=== PATIENT | female | born 1960 | race Caucasian/White ===

== ENCOUNTER 2023-04-23 17:33 | Inpatient (IN) | payer MEDICAID, OTHER ==
[~2023-04-23] VITALS: Ht 167.6 cm; Wt 44.5 kg
[2023-04-23 19:09] LABS: BASOPHILS % (AUTO) 0.6 % (0.0-2.0); EOSINOPHILS % (AUTO) 1.2 % (1.0-6.0); HEMATOCRIT 44.2 % (36-46); HEMOGLOBIN 15.1 g/dL (12.0-16.0); LYMPHOCYTES # (AUTO) 2.6 K/uL (1.0-4.8); LYMPHOCYTES % (AUTO) 31.3 % (22.0-44.0); MEAN CORPUSCULAR HEMOGLOBIN 32.6 pg (26.0-34.0); MEAN CORPUSCULAR HGB CONC 34.2 G/dL (31.0-37.0); MEAN CORPUSCULAR VOLUME 95 fL (80-100); MONOCYTES # (AUTO) 0.8 K/uL (0.1-1.0); MONOCYTES % (AUTO) 9.3 % (2.0-9.0); NEUTROPHILS # (AUTO) 4.7 K/uL (1.8-7.7); NEUTROPHILS % (AUTO) 57.6 % (40.0-70.0); PLATELET COUNT (AUTO) 188 K/uL (150-450); RED BLOOD CELL COUNT(AUTO) 4.64 MIL/uL (4.00-5.20); RED CELL DISTRIBUTION WIDTH 13.4 % (11.5-14.5); WHITE BLOOD COUNT (AUTO) 8.2 K/uL (4.5-11.0)
[2023-04-23 19:17] LABS: ANION GAP 8 mmol/L (8-16); CALCIUM, TOTAL 9.1 mg/dL (8.8-10.5); CARBON DIOXIDE 27 mmol/L (22-29); CHLORIDE 102 mmol/L (98-107); CREATININE 0.68 mg/dL (0.60-1.30); GLOMERULAR FILTR. RATE CALC > 60 mL/min (>60); GLUCOSE,RANDOM 119 mg/dL (70-110); POTASSIUM 3.5 mmol/L (3.5-5.1); SODIUM SERUM 137 mmol/L (136-145); UREA NITROGEN, BLOOD 14 mg/dL (7-18)
[2023-04-23] MEDS ORDERED: OXYC1TAB6 PO (19:20)
[2023-04-23 19:22] LABS: ALANINE AMINOTRANSFERASE 19 U/L (12-78); ALBUMIN 4.1 g/dL (3.4-5.0); ALKALINE PHOSPHATASE 64 U/L (46-116); ASPARTATE AMINOTRANSFERASE 20 U/L (15-37); BILIRUBIN,TOTAL 0.1 mg/dL (0.1-1.0); TOTAL PROTEIN, SERUM 7.5 g/dL (6.4-8.2)
[2023-04-23 19:26] LABS: ALCOHOL, BLOOD (SERUM) 192 mg/dL (0-10)
[2023-04-23 21:32] LABS: COVID AG,FIA SOURCE NASAL SWAB
[2023-04-23 21:39] LABS: PH,URINE DRUG SCREEN 5.5 (5.0-8.0)
[2023-04-23] MEDS ORDERED: HALOPERIDOL 5 MG TABLET PO PRN (21:45)
[2023-04-23 21:48] LABS: ALCOHOL, URINE DRUG SCREEN POSITIVE (NEGATIVE); AMPHET/METH SCREEN,URINE NEGATIVE (NEGATIVE); BARBITURATE SCREEN, URINE NEGATIVE (NEGATIVE); BENZODIAZEPINES SCREEN,URINE NEGATIVE (NEGATIVE); CANNABINOID SCREEN,URINE NEGATIVE (NEGATIVE); COCAINE SCREEN,URINE NEGATIVE (NEGATIVE); METHADONE SCREEN, URINE NEGATIVE (NEGATIVE); OPIATE SCREEN,URINE NEGATIVE (NEGATIVE); PHENCYCLIDINE SCREEN,URINE NEGATIVE (NEGATIVE)
[2023-04-23 21:53] LABS: SARS-COV2 (COVID) ANTIGEN,FIA Negative (Negative)
[2023-04-24] MEDS: ZOLPIDEM TARTRATE 10 MG TABLET PO PRN ×2 (02:49→22:47)
[2023-04-24] MEDS: LORazepam 2 MG TABLET PO PRN ×2 (02:49→08:38)
[2023-04-24 03:13] VITALS: BP 120/70; PULSE 77; RESP 16; TEMP 97.3; O2SAT 96
[2023-04-24] MEDS ORDERED: PNEUMOCOCCAL VACCINE POLYVALENT 0.5 ML SYRINGE [PPSV23] IM. ONE (07:00)
[2023-04-24 08:34] VITALS: BP 108/53; PULSE 104; RESP 18; TEMP 97.5; O2SAT 97
[2023-04-24] MEDS ORDERED: ARIP10TA38 PO (10:45)
[2023-04-24] MEDS: ARIPiprazole 10 MG TABLET PO SCH (11:01)
[2023-04-24 22:12] VITALS: BP 110/63; PULSE 63; RESP 17; TEMP 97.3; O2SAT 98
[2023-04-25 08:21] LABS: CHOL/HDL RATIO 2.7 (3.9-5.7)
[2023-04-25] MEDS: FOLIC ACID 1 MG TABLET PO SCH (08:29)
[2023-04-25] MEDS: ARIPiprazole 10 MG TABLET PO SCH (08:29)
[2023-04-25] MEDS: MULTIVITAMINS WITH MINERALS, THERAPEUTIC TABLET PO SCH (08:29)
[2023-04-25] MEDS: THIAMINE 100 MG TABLET PO SCH (08:29)
[2023-04-25 08:45] VITALS: BP 132/79; PULSE 90; RESP 17; TEMP 97; O2SAT 98
[2023-04-25 23:57] VITALS: BP 120/67; PULSE 68; RESP 17; TEMP 98.1; O2SAT 99
[2023-04-26] MEDS: ZOLPIDEM TARTRATE 10 MG TABLET PO PRN (01:59)
[2023-04-26] MEDS: THIAMINE 100 MG TABLET PO SCH (08:15)
[2023-04-26] MEDS: ARIPiprazole 10 MG TABLET PO SCH (08:15)
[2023-04-26] MEDS: FOLIC ACID 1 MG TABLET PO SCH (08:15)
[2023-04-26] MEDS: MULTIVITAMINS WITH MINERALS, THERAPEUTIC TABLET PO SCH (08:15)
[2023-04-26 08:23] VITALS: BP 142/77; PULSE 81; RESP 16; TEMP 97.9; O2SAT 99
[2023-04-26 22:03] VITALS: BP 131/64; PULSE 82; RESP 16; TEMP 98.1
[2023-04-27] MEDS: ZOLPIDEM TARTRATE 10 MG TABLET PO PRN (01:19)
[2023-04-27 08:11] VITALS: BP 118/69; PULSE 79; RESP 16; TEMP 98.2; O2SAT 97
[2023-04-27] MEDS: THIAMINE 100 MG TABLET PO SCH (08:17)
[2023-04-27] MEDS: MULTIVITAMINS WITH MINERALS, THERAPEUTIC TABLET PO SCH (08:18)
[2023-04-27] MEDS: FOLIC ACID 1 MG TABLET PO SCH (08:18)
[2023-04-27] MEDS: ARIPiprazole 10 MG TABLET PO SCH (08:18)
[2023-04-28 05:06] LABS: HEPATITIS C AB (EIA) Non Reactive (Non Reactive)
== END 2023-04-27 16:30 | disposition left against medical advice (07) | DRG 750 ==
LOC: EMS 17:35 → B3A 04-24 00:03
PROVIDERS: ADMIT Psychiatry & Neurology Psychiatry; ATTEND Psychiatry & Neurology Psychiatry
PROC: GZHZZZZ Group Psychotherapy (ICD-10-PCS; principal; 2023-04-24)
DX: F20.0 Paranoid schizophrenia (principal); E78.5 Hyperlipidemia, unspecified; F10.10 Alcohol abuse, uncomplicated; J45.909 Unspecified asthma, uncomplicated; M10.9 Gout, unspecified; Z20.822 Contact with and (suspected) exposure to COVID-19; R00.0 Tachycardia, unspecified; T43.96XA Underdosing of unspecified psychotropic drug, initial encounter; Y92.89 Other specified places as the place of occurrence of the external cause; Z86.73 Personal history of transient ischemic attack (TIA), and cerebral infarction without residual deficits; Z79.899 Other long term (current) drug therapy; Z88.0 Allergy status to penicillin
CPT/HCPCS: 80053; 80061; 80307; 83036; 85025; 86803; 87340; 99285; G0480

== ENCOUNTER 2023-05-29 10:53 | Inpatient (IN) | payer MEDICAID, OTHER ==
[~2023-05-29] VITALS: Ht 162.6 cm; Wt 42.6 kg
[2023-05-29 11:45] LABS: EOSINOPHILS % (AUTO) 0.6 % (1.0-6.0); HEMATOCRIT 41.6 % (36-46); HEMOGLOBIN 14.2 g/dL (12.0-16.0); LYMPHOCYTES # (AUTO) 2.1 K/uL (1.0-4.8); LYMPHOCYTES % (AUTO) 25.2 % (22.0-44.0); MEAN CORPUSCULAR HEMOGLOBIN 31.5 pg (26.0-34.0); MEAN CORPUSCULAR HGB CONC 34.1 G/dL (31.0-37.0); MEAN CORPUSCULAR VOLUME 93 fL (80-100); MONOCYTES # (AUTO) 0.6 K/uL (0.1-1.0); MONOCYTES % (AUTO) 7.5 % (2.0-9.0); NEUTROPHILS # (AUTO) 5.4 K/uL (1.8-7.7); NEUTROPHILS % (AUTO) 65.7 % (40.0-70.0); RED CELL DISTRIBUTION WIDTH 13.7 % (11.5-14.5); WHITE BLOOD COUNT (AUTO) 8.2 K/uL (4.5-11.0)
[2023-05-29 12:02] LABS: ANION GAP 9 mmol/L (8-16); CALCIUM, TOTAL 8.2 mg/dL (8.8-10.5); CARBON DIOXIDE 24 mmol/L (22-29); CHLORIDE 102 mmol/L (98-107); GLOMERULAR FILTR. RATE CALC > 60 mL/min (>60); GLUCOSE,RANDOM 94 mg/dL (70-110); POTASSIUM 4.4 mmol/L (3.5-5.1); SODIUM SERUM 135 mmol/L (136-145); UREA NITROGEN, BLOOD 12 mg/dL (7-18)
[2023-05-29 12:04] LABS: ALCOHOL, BLOOD (SERUM) 58 mg/dL (0-10)
[2023-05-29 12:07] LABS: ALANINE AMINOTRANSFERASE 26 U/L (12-78); ALBUMIN 3.7 g/dL (3.4-5.0); ALKALINE PHOSPHATASE 62 U/L (46-116); ASPARTATE AMINOTRANSFERASE 31 U/L (15-37); BILIRUBIN,TOTAL 0.2 mg/dL (0.1-1.0); TOTAL PROTEIN, SERUM 6.9 g/dL (6.4-8.2)
[2023-05-29 12:09] LABS: PLATELET COUNT (AUTO) 176 K/uL (150-450)
[2023-05-29 13:06] LABS: COVID AG,FIA SOURCE NASAL SWAB
[2023-05-29 13:23] LABS: SARS-COV2 (COVID) ANTIGEN,FIA Negative (Negative)
[2023-05-29 15:19] VITALS: BP 112/66; PULSE 85; RESP 18; TEMP 98.4
[2023-05-29] MEDS: LORazepam 2 MG TABLET PO PRN (16:29)
[2023-05-29] MEDS: HALOPERIDOL 5 MG TABLET PO PRN (16:29)
[2023-05-29 21:42] VITALS: BP 116/55; PULSE 80; RESP 18; TEMP 97.2
[2023-05-30] MEDS: FOLIC ACID 1 MG TABLET PO SCH (08:00)
[2023-05-30] MEDS: MULTIVITAMINS WITH MINERALS, THERAPEUTIC TABLET PO SCH (08:00)
[2023-05-30 08:16] VITALS: BP 116/62; PULSE 91; RESP 16; TEMP 97.4; O2SAT 100
[2023-05-30] MEDS ORDERED: ACETAMINOPHEN 325 MG TABLET PO PRN (08:30)
[2023-05-30] MEDS ORDERED: MAGNESIUM HYDROXIDE SUSPENSION 30 ML UDCUP PO PRN (08:30)
[2023-05-30] MEDS ORDERED: CloNIDine HCL 0.1 MG TABLET PO PRN (08:30)
[2023-05-30] MEDS ORDERED: ALBUTEROL SULFATE HFA 90 MCG/PUFF 8 GM INHALER IH PRN (08:30)
[2023-05-30] MEDS ORDERED: ONDANSETRON HCL 4 MG TABLET PO PRN (08:30)
[2023-05-30] MEDS ORDERED: LOPERAMIDE HCL 2 MG CAPSULE PO PRN (08:30)
[2023-05-30] MEDS ORDERED: PETROLATUM,WHITE 28 GM JELLY TP PRN (08:30)
[2023-05-30] MEDS ORDERED: GuaiFENesin/D-METHORPHAN [SUGAR-FREE] 200-20MG/10 ML SYRUP UDCUP PO PRN (08:30)
[2023-05-30] MEDS ORDERED: MAG HYDROX/ALUMINUM HYD/SIMETH ES 30 ML SUSPENSION UDCUP PO PRN (08:30)
[2023-05-30] MEDS ORDERED: DOCUSATE SODIUM 100 MG CAPSULE PO PRN (08:30)
[2023-05-30] MEDS ORDERED: IBUPROFEN 400 MG TABLET PO PRN (08:30)
[2023-05-30] MEDS: THIAMINE 100 MG/ML 2 ML VIAL IM SCH (09:00)
[2023-05-30 09:01] VITALS: BP 116/62; PULSE 91; RESP 16; TEMP 97.4; O2SAT 100
[2023-05-30 20:08] VITALS: BP 110/63; PULSE 68; RESP 17; TEMP 97.5; O2SAT 99
[2023-05-30] MEDS: ZOLPIDEM TARTRATE 10 MG TABLET PO PRN (22:00)
[2023-05-31 08:23] VITALS: BP 110/66; PULSE 81; RESP 16; TEMP 97.4; O2SAT 99
[2023-05-31 08:34] LABS: APPEARANCE,URINE CLEAR (CLEAR); BILIRUBIN,URINE NEGATIVE (NEGATIVE); COLOR,URINE LIGHT YELLOW (YELLOW); GLUCOSE, URINE (UA) NEGATIVE (NEGATIVE); KETONES,URINE NEGATIVE (NEGATIVE); LEUKOCYTE ESTERASE ,URINE NEGATIVE (NEGATIVE); NITRATE,URINE NEGATIVE (NEGATIVE); OCCULT BLOOD,URINE NEGATIVE (NEGATIVE); PH,URINE 5.5 (5.0-8.0); PH,URINE DRUG SCREEN 5.5 (5.0-8.0); PROTEIN,URINE NEGATIVE (NEGATIVE); SPECIFIC GRAVITIY, URINE 1.007 (1.003-1.030); UROBILINOGEN,URINE <=1.0 mg/dL (<=1.0)
[2023-05-31 08:58] LABS: ALCOHOL, URINE DRUG SCREEN NEGATIVE (NEGATIVE); AMPHET/METH SCREEN,URINE NEGATIVE (NEGATIVE); BARBITURATE SCREEN, URINE NEGATIVE (NEGATIVE); BENZODIAZEPINES SCREEN,URINE NEGATIVE (NEGATIVE); CANNABINOID SCREEN,URINE NEGATIVE (NEGATIVE); COCAINE SCREEN,URINE NEGATIVE (NEGATIVE); METHADONE SCREEN, URINE NEGATIVE (NEGATIVE); OPIATE SCREEN,URINE NEGATIVE (NEGATIVE); PHENCYCLIDINE SCREEN,URINE NEGATIVE (NEGATIVE)
[2023-05-31 09:01] LABS: CHOL/HDL RATIO 2.4 (3.9-5.7); HEMOGLOBIN A1C 5.5 % (3.8-5.6); THYROID STIMULATING HORMONE 1.11 uIU/mL (0.36-3.74)
[2023-05-31] MEDS: THIAMINE 100 MG TABLET PO SCH (11:39)
[2023-05-31] MEDS: ARIPiprazole 10 MG TABLET PO SCH (13:05)
[2023-05-31 22:04] VITALS: BP 109/61; PULSE 75; RESP 18; TEMP 97.8; O2SAT 98
[2023-06-01 08:09] VITALS: BP 92/60; PULSE 62; RESP 16; TEMP 97.6; O2SAT 98
[2023-06-01] MEDS: NICOTINE 14 MG/24 HOUR PATCH TD PRN (08:49)
[2023-06-01 20:32] VITALS: BP 101/59; PULSE 62; RESP 18; TEMP 97.5; O2SAT 97
[2023-06-02 09:59] VITALS: BP 108/88; PULSE 88; RESP 20; TEMP 98; O2SAT 97
[2023-06-02 23:22] VITALS: BP 112/84; PULSE 89; RESP 18; TEMP 97.9; O2SAT 98
[2023-06-03 08:15] VITALS: BP 118/68; PULSE 84; RESP 16; TEMP 97.6; O2SAT 100
[2023-06-03 20:20] VITALS: BP 123/69; PULSE 80; RESP 17; TEMP 97.7; O2SAT 99
[2023-06-04 08:35] VITALS: BP 115/68; PULSE 98; RESP 16; TEMP 98; O2SAT 100
[2023-06-04 20:22] VITALS: BP 121/69; PULSE 85; RESP 17; TEMP 97.7
[2023-06-05 10:06] VITALS: BP 103/63; PULSE 87; RESP 18; TEMP 98.2; O2SAT 100
[2023-06-05 20:16] VITALS: BP 108/68; PULSE 77; RESP 16; TEMP 98
[2023-06-06 10:00] VITALS: BP 118/74; PULSE 80; RESP 18; TEMP 97.5; O2SAT 98
[2023-06-06] MEDS ORDERED: INFLUENZA VIRUS VACCINE QVS 2023-24 (6MO+)/PF 60 MCG/0.5 ML SYRINGE IM. ONE (12:00)
[2023-06-06] MEDS: SUMAtriptan SUCCINATE 25 MG TABLET PO PRN (17:48)
[2023-06-06 20:47] VITALS: BP 107/61; PULSE 74; RESP 18; TEMP 96.9; O2SAT 96
[2023-06-07 14:37] VITALS: BP 108/64; PULSE 68; RESP 16; TEMP 98; O2SAT 100
[2023-06-07 14:47] VITALS: RESP 16; O2SAT 100
[2023-06-07 20:27] VITALS: BP 113/68; PULSE 87; RESP 18; TEMP 97.6; O2SAT 98
[2023-06-08 08:16] VITALS: BP 109/69; PULSE 99; RESP 16; TEMP 97.8; O2SAT 99
[2023-06-08 22:55] VITALS: BP 110/64; PULSE 76; RESP 18; TEMP 97.6; O2SAT 97
[2023-06-09 08:29] VITALS: BP 117/65; PULSE 98; RESP 16; TEMP 97.2; O2SAT 98
[2023-06-09 12:06] VITALS: BP 119/70; PULSE 97; RESP 18; TEMP 97.5; O2SAT 98
[2023-06-09] MEDS ORDERED: ARIP10TA38 PO (18:01)
[2023-06-09 20:14] VITALS: BP 98/50; PULSE 78; RESP 18; TEMP 97.3; O2SAT 97
== END 2023-06-10 11:15 | disposition home or self-care (01) | DRG 750 ==
LOC: EMS 10:53 → B3A 13:24
PROVIDERS: ADMIT Psychiatry & Neurology Child & Adolescent Psychiatry; ATTEND Psychiatry & Neurology Child & Adolescent Psychiatry
PROC: GZHZZZZ Group Psychotherapy (ICD-10-PCS; principal; 2023-06-04)
DX: F20.0 Paranoid schizophrenia (principal); E87.1 Hypo-osmolality and hyponatremia; R45.851 Suicidal ideations; F10.10 Alcohol abuse, uncomplicated; E78.5 Hyperlipidemia, unspecified; Z20.822 Contact with and (suspected) exposure to COVID-19; J45.909 Unspecified asthma, uncomplicated; F43.10 Post-traumatic stress disorder, unspecified; Z86.73 Personal history of transient ischemic attack (TIA), and cerebral infarction without residual deficits; Z88.0 Allergy status to penicillin; Z59.00 Homelessness unspecified
CPT/HCPCS: 80053; 80061; 80307; 81003; 83036; 84443; 85025; G0480